=== PATIENT | male | born 1980 | race American Indian/Alaskan Native ===

== ENCOUNTER 2017-09-24 20:55 | Emergency (ER) | payer SELFPAY ==
[2017-09-24] MEDS ORDERED: BOOSTRIX IM ONE (22:24)
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
[2017-09-24 22:39] VITALS: BP 128/68
== END 2017-09-24 22:38 | disposition home or self-care (01) ==
LOC: ED 20:55
DX: S01.21XA Laceration without foreign body of nose, initial encounter (principal); W50.0XXA Accidental hit or strike by another person, initial encounter; Y93.89 Activity, other specified; Y99.8 Other external cause status; Y92.149 Unspecified place in prison as the place of occurrence of the external cause
CPT/HCPCS: 90471; 90715

== ENCOUNTER 2019-01-19 17:59 | Inpatient (IN) | payer OTHER ==
[2019-01-19] MEDS ORDERED: IPRATROPIUM 0.02% NEBU 2.5 ML IH ONE ×2 (18:06→18:08)
[2019-01-19] MEDS ORDERED: ALBUTEROL 2.5 MG/3 ML NEBU IH ONE ×2 (18:06→18:08)
[2019-01-19] MEDS ORDERED: SODIUM CHLORIDE 0.9% 1000 ML 1,000 ML IV ONE (18:08)
--- NOTE | 2019-01-19 18:32 | XRay Report ---
CHEST 1 VIEW 01/19/2019 6:07 PM INDICATION / CLINICAL INFORMATION: respiratory distress. COMPARISON: None available. FINDINGS: SUPPORT DEVICES: None. HEART / MEDIASTINUM: No significant abnormality. LUNGS / PLEURA: Bandlike opacity in the right lower lung most likely reflect subsegmental atelectasis . Left lung is clear. No significant effusion. No pneumothorax. ADDITIONAL FINDINGS: No significant additional findings. IMPRESSION: 1. Right lower lung bandlike opacity most likely reflecting subsegmental atelectasis. Signer Name: Isidro Erickson MD Signed: 01/19/2019 6:27 PM Workstation Name: [id number]
[2019-01-19 19:23] LABS: Basophils % (Auto) 0.4 % (0.0-1.8); Eosinophils # (Auto) 1.2 K/mm3 (0.0-0.4); Eosinophils % (Auto) 9.4 % (0.0-4.3); Hematocrit 44.2 % (35.5-45.6); Hemoglobin 14.2 gm/dl (11.8-15.2); Lymphocytes # (Auto) 2.5 K/mm3 (1.2-5.4); Lymphocytes % (Auto) 19.1 % (13.4-35.0); Mean Corpuscular HGB Conc 32 % (32-34); Mean Corpuscular Volume 86 fl (84-94); Monocytes # (Auto) 0.8 K/mm3 (0.0-0.8); Monocytes % (Auto) 5.9 % (0.0-7.3); Platelet Count 353 K/mm3 (140-440); Red Blood Count 5.14 M/mm3 (3.65-5.03)
[2019-01-19 19:39] LABS: BUN/Creatinine Ratio 6; Blood Urea Nitrogen 5 mg/dL (9-20); Calcium 8.7 mg/dL (8.4-10.2); Hemolysis Index 6
[2019-01-19] MEDS ORDERED: SODIUM CHLORIDE 0.9% 1000 ML IV SOLN IV ONE (19:49)
--- NOTE | 2019-01-19 20:00 | History and Physical Report ---
History of Present Illness Chief complaint: I cant breathe History of present illness: 38 YO Male with Obesity, Asthma presents to ED for evaluation. Pt states that he has experienced shortness of breath over the past 2 days with persistently worsening symptoms over the same time frame. Pt states that he has experienced nonproductive cough, and subjective fever over the same time frame. EMS notified, and upon arrival the patient was found to be in distress and transported to [facility]. Pt seen and evaluated in ED and found to have RLL Pneumonia, SIRS, Acidosis, and Acute Hypoxemic Respiratory Failure. Pt treated with supplemental oxygen and nebulizer therapy without improvement. Pt than placed on NIPPV and admitted to medical floor. Pt initiated on Pneumonia protocol. No further history obtainable. Pt is unable to speak in complete sentences, and is experiencing increased work of breathing. No prior admission for review. All listed medication reconciled at time of admission. Past History Past Medical History: other (see HPI) Past Surgical History: No surgical history, Other (reviewed) Social history: single. denies: smoking, alcohol abuse, prescription drug abuse Family history: hypertension Medications and Allergies Allergies Allergy/AdvReac Type Severity Reaction Status Date / Time No Known Allergies Allergy Unverified 09/24/17 21:07 Home Medications Medication Instructions Recorded Confirmed Last Taken Type No Known Home Medications [No 09/24/17 09/24/17 Unknown History Reported Home Medications] Active Meds: Active Medications Ceftriaxone Sodium (Rocephin/Ns 2 Gm/100 Ml) 2 gm in 100 mls @ 200 mls/hr IV Q24HR NADIR; Protocol Azithromycin 500 mg/ Sodium (Chloride) 250 mls @ 250 mls/hr IV Q24HR NADIR; Protocol Review of Systems Constitutional: fever, no weight loss, no weight gain, no chills, no sweats Ears, nose, mouth and throat: nasal congestion, no ear pain, no ear discharge, no tinnitis Cardiovascular: no chest pain, no orthopnea, no palpitations, no edema, no lightheadedness Respiratory: cough, congestion, wheezing, no hemoptysis, no dyspnea on exertion Gastrointestinal: no nausea, no vomiting, no diarrhea Genitourinary Male: no hematuria, no flank pain, no discharge, no nocturia Rectal: no pain, no incontinence, no bleeding Musculoskeletal: no neck stiffness, no neck pain, no shooting arm pain, no low back pain, no shooting leg pain Integumentary: no rash, no pruritis, no redness, no sores, no wounds Neurological: no transient paralysis, no paralysis, no weakness, no parathesias, no numbness, no seizures Psychiatric: no anxiety, no memory loss, no change in sleep habits, no insomnia, no hypersomnia, no change in libido, no suicidal ideation Endocrine: no cold intolerance, no polyphagia, no excessive thirst, no polyuria Hematologic/Lymphatic: no easy bruising, no easy bleeding, no lymphadenopathy, no lymphedema Allergic/Immunologic: no urticaria, no allergic rhinitis, no persistent infections, no angioedema Exam - Constitutional Vitals: Temp Pulse Resp BP Pulse Ox 97.5 F L 120 H 28 H 120/85 97 01/19/19 18:01 01/19/19 18:10 01/19/19 18:15 01/19/19 18:05 01/19/19 18:15 General appearance: Present: mild distress - EENT Eyes: Present: PERRL ENT: hearing intact, clear oral mucosa - Neck Neck: Present: supple, normal ROM - Respiratory Respiratory effort: labored, accessory muscle use, stridor Respiratory: bilateral: diminished, wheezing - Cardiovascular Heart Sounds: Present: S1 & S2. Absent: rub, click - Extremities Extremities: pulses symmetrical, No edema Peripheral Pulses: within normal limits - Abdominal General gastrointestinal: Present: soft, non-tender, non-distended, normal bowel sounds Male genitourinary: Present: normal - Integumentary Integumentary: Present: clear, warm, dry - Musculoskeletal Musculoskeletal: gait normal, strength equal bilaterally - Psychiatric Psychiatric: appropriate mood/affect, intact judgment & insight - Neurologic Neurologic: CNII-XII intact, moves all extremities Results - Labs CBC & Chem 7: 01/19/19 18:27 01/19/19 18:27 Labs: Abnormal lab results 01/19/19 01/19/19 Range/Units 18:27 18:27 WBC 13.0 H (4.5-11.0) K/mm3 RBC 5.14 H (3.65-5.03) M/mm3 Eos % (Auto) 9.4 H (0.0-4.3) % Eos # 1.2 H (0.0-0.4) K/mm3 Seg Neutrophils # 8.5 H (1.8-7.7) K/mm3 Potassium 3.4 L (3.6-5.0) mmol/L Carbon Dioxide 20 L (22-30) mmol/L BUN 5 L (9-20) mg/dL Glucose 179 H (75-100) mg/dL Assessment and Plan - Patient Problems (1) Acute respiratory failure Current Visit: Yes Status: Acute Qualifiers: Respiratory failure complication: hypoxia Qualified Code(s): J96.01 - Acute respiratory failure with hypoxia Plan to address problem: Supplemental oxygen,nebulizer therapy, chest x ray, pulse oximetry, D dimer, NIPPV, ABG. (2) SIRS (systemic inflammatory response syndrome) Current Visit: Yes Status: Acute Plan to address problem: IV antibiotic therapy, CBC, CMP, Chest X ray, Urinalysis (3) Acidosis Current Visit: Yes Status: Acute Plan to address problem: IVF resuscitation therapy, repeat bmp (4) Pneumonia Current Visit: Yes Status: Acute Qualifiers: Pneumonia type: due to unspecified organism Laterality: right Lung locati on: lower lobe of lung Qualified Code(s): J18.9 - Pneumonia, unspecified organism Plan to address problem: Pneumonia protocol: IV antibiotic therapy, CBC, CMP, Chest x ray, blood culture, nebulizer therapy (5) DVT prophylaxis Current Visit: Yes Status: Acute Plan to address problem: SCD to BLE while in bed, pt ambulatory
[2019-01-19] MEDS ORDERED: ONDANSETRON 4 MG/2 ML INJ IV PRN (20:01)
[2019-01-19] MEDS ORDERED: ALBUTEROL 2.5 MG/3 ML NEBU IH PRN (20:01)
[2019-01-19] MEDS ORDERED: ACETAMINOPHEN 325 MG TAB PO PRN (20:01)
[2019-01-19] MEDS: cefTRIAXone/NS 2 GM/100 ML 2 GM/100 ML BAG IV SCH (20:04)
--- NOTE | 2019-01-19 20:04 | Emergency Department Report ---
ED Asthma HPI - General Chief Complaint: Adult Asthma Stated Complaint: INGA Time Seen by Provider: 01/19/19 18:04 Source: patient, EMS Mode of arrival: Stretcher Limitations: No Limitations - History of Present Illness Initial Comments: Patient is a 38-year-old male with past medical history of asthma who is presenting with respiratory distress. Patient states that there is wheezing began several hours ago. Had a nonproductive cough. Patient states that he has had some minor congestion for the last 2 days but his breathing status worsened tonight. She didn't denies fevers chills nausea vomiting at this time. Patient states he has been intubated in the past secondary to asthma exacerbations. Severity: severe, similar to prior Context: none known Associated Symptoms: dry cough - Related Data Current Asthma Therapy: other (patient received 5 mg of albuterol, Solu-Medrol, epinephrine subcutaneously prior to arrival. Patient also received 2 g of magnesium. She was started on CPAP.) Home Medications Medication Instructions Recorded Confirmed Last Taken No Known Home Medications [No 09/24/17 09/24/17 Unknown Reported Home Medications] Allergies Allergy/AdvReac Type Severity Reaction Status Date / Time No Known Allergies Allergy Unverified 09/24/17 21:07 ED Review of Systems ROS: Stated complaint: INGA Other details as noted in HPI Comment: All other systems reviewed and negative ED Past Medical Hx - Past Medical History Previous Medical History?: Yes Hx Asthma: Yes (Hx of intubation) - Surgical History Past Surgical History?: Yes Hx Appendectomy: Yes - Social History Smoking Status: Never Smoker Substance Use Type: Alcohol - Medications Home Medications: Home Medications Medication Instructions Recorded Confirmed Last Taken Type No Known Home Medications [No 09/24/17 09/24/17 Unknown History Reported Home Medications] ED Physical Exam - General Limitations: No Limitations General appearance: alert, in no apparent distress - Head Head exam: Present: atraumatic, normocephalic - Eye Eye exam: Present: normal appearance, PERRL, EOMI - ENT ENT exam: Present: mucous membranes moist - Neck Neck exam: Present: normal inspection - Respiratory Respiratory exam: Present: respiratory distress, wheezes, accessory muscle use, decreased breath sounds, prolonged expiratory. Absent: normal lung sounds bilaterally, rales, rhonchi - Cardiovascular Cardiovascular Exam: Present: normal rhythm, tachycardia. Absent: systolic murmur, diastolic murmur, rubs, gallop - GI/Abdominal GI/Abdominal exam: Present: soft, normal bowel sounds. Absent: distended, tenderness, guarding - Rectal Rectal exam: Present: deferred - Extremities Exam Extremities exam: Present: normal inspection - Back Exam Back exam: Present: normal inspection - Neurological Exam Neurological exam: Present: alert, oriented X3 - Psychiatric Psychiatric exam: Present: normal affect, normal mood - Skin Skin exam: Present: warm, dry, intact, normal color. Absent: rash ED Course Vital Signs 01/19/19 01/19/19 01/19/19 18:01 18:05 18:10 Temperature 97.5 F L Pulse Rate 120 H 120 H Pulse Rate [ 120 H Anterior Bilateral Throughout] Respiratory 24 28 H Rate Respiratory 28 H Rate [Anterior Bilateral Throughout] Blood Pressure 120/80 120/85 Blood Pressure 120/85 [Left] O2 Sat by Pulse 96 96 Oximetry 01/19/19 18:15 Temperature Pulse Rate Pulse Rate [ Anterior Bilateral Throughout] Respiratory 28 H Rate Respiratory Rate [Anterior Bilateral Throughout] Blood Pressure Blood Pressure [Left] O2 Sat by Pulse 97 Oximetry ED Medical Decision Making - Lab Data Result diagrams: 01/19/19 18:27 01/19/19 18:27 - EKG Data -: EKG Interpreted by Ca EKG shows normal: sinus rhythm, axis, intervals, QRS complexes, ST-T waves Rate: tachycardia - Radiology Data CHEST 1 VIEW 01/19/2019 6:07 PM INDICATION / CLINICAL INFORMATION: respiratory distress. COMPARISON: None available. FINDINGS: SUPPORT DEVICES: None. HEART / MEDIASTINUM: No significant abnormality. LUNGS / PLEURA: Bandlike opacity in the right lower lung most likely reflect subsegmental atelectasis. Left lung is clear. No significant effusion. No pneumothorax. ADDITIONAL FINDINGS: No significant additional findings. IMPRESSION: 1. Right lower lung bandlike opacity most likely reflecting subsegmental a telectasis. Signer Name: Isidro Erickson MD Signed: 01/19/2019 6:27 PM Workstation Name: [id number] - Medical Decision Making She receives a negative treatment on BiPAP for an hour. Wheezing has improves slightly however patient still has decreased breath sounds. Patient does state he feels better than he did on arrival. Patient is in good spirits and does not appear to be in respiratory distress at this time. Patient be admitted to the hospitalist service. Patient had a elevated white count and because of his tachycardia and tachypnea is placed on the sepsis protocol. Patient started on antibiotics to cover for possible pneumonia. Patient does have a hazy opacity in the right lower lobe that likely his atelectasis with a pneumonia cannot be ruled out at this time. Critical Care Time: Yes (30) Critical care attestation.: If time is entered above; I have spent that time in minutes in the direct care of this critically ill patient, excluding procedure time. ED Disposition Clinical Impression: Status asthmaticus Qualifiers: Asthma severity: moderate Asthma persistence: persistent Qualified Code(s): J45.42 - Moderate persistent asthma with status asthmaticus Pneumonia Qualifiers: Pneumonia type: due to unspecified organism Laterality: right Lung location: lower lobe of lung Qualified Code(s): J18.9 - Pneumonia, unspecified organism Disposition: 09 OP ADMIT IP TO THIS HOSP Is pt being admited?: Yes Does the pt Need Aspirin: No Condition: Stable Time of Disposition: 20:05
[2019-01-19] MEDS: AZITHROMYCIN 500 MG in SODIUM CHLORIDE 0.9% 250ML 250 ML IV SCH (21:56)
[2019-01-20] MEDS ORDERED: SODIUM CHLORIDE 0.9% 1000 ML 1,000 ML IV ONE (02:50)
[2019-01-20 04:21] LABS: Hematocrit 36.4 % (35.5-45.6); Hemoglobin 11.6 gm/dl (11.8-15.2); Mean Corpuscular HGB Conc 32 % (32-34); Mean Corpuscular Volume 86 fl (84-94); Platelet Count 310 K/mm3 (140-440); Red Blood Count 4.23 M/mm3 (3.65-5.03); Red Cell Distribution Width 15.3 % (13.2-15.2)
[2019-01-20 04:46] LABS: BUN/Creatinine Ratio 7; Blood Urea Nitrogen 6 mg/dL (9-20); Calcium 8.5 mg/dL (8.4-10.2); Hemolysis Index 6
[2019-01-20 06:08] LABS: Band Neutrophils # (Manual) 0.2 K/mm3; Basophils % (Manual) 0 % (0.0-1.8); Eosinophils % (Manual) 0 % (0.0-4.3); Total Cells Counted 100
[2019-01-20 06:11] LABS: Burr Cells Rare
[2019-01-20 06:12] LABS: Platelet Estimate Consistent w Auto
[2019-01-20] MEDS: cefTRIAXone/NS 2 GM/100 ML 2 GM/100 ML BAG IV SCH (10:50)
[2019-01-20] MEDS: SODIUM CHLORIDE 0.9% 1000 ML 1,000 ML IV SCH ×2 (10:53→21:09)
--- NOTE | 2019-01-20 13:44 | Discharge Summary ---
Providers - Providers Date of Admission: 01/19/19 20:01 Date of discharge: 01/20/19 Attending physician: BEATRIS DIAZ Primary care physician: YULIET BRITT Hospitalization Condition: Stable Hospital course: 38 YO Male with Obesity, Asthma presents to ED for evaluation. Pt states that he has experienced shortness of breath over the past 2 days with persistently worsening symptoms over the same time frame. Pt states that he has experienced nonproductive cough, and subjective fever over the same time frame. EMS notified, and upon arrival the patient was found to be in distress and transported to [facility]. Pt seen and evaluated in ED and found to have RLL Pneumonia, SIRS, Acidosis, and Acute Hypoxemic Respiratory Failure. Pt treated with supplemental oxygen and nebulizer therapy without improvement. Pt than placed on NIPPV and admitted to medical floor. Pt initiated on Pneumonia protocol. No further history obtainable. Pt is unable to speak in complete sentences, and is experiencing increased work of breathing. No prior admission for review. All listed medication reconciled at time of admission. Feels better and wants to go home. Disposition: DC- TO HOME OR SELFCARE Exam - Constitutional Vitals: Temp Pulse Resp BP Pulse Ox 99.0 F 103 H 22 144/84 93 01/20/19 11:29 01/20/19 11:29 01/20/19 11:29 01/20/19 11:29 01/20/19 11:29 Plan Follow up with: YULIET BRITT MD [Primary Care Provider] - 3-5 Days
--- NOTE | 2019-01-20 13:58 | History and Physical Report ---
History of Present Illness Date of examination: 01/20/19 Date of admission: 01/19/19 20:01 Chief complaint: Pneumonia, Acute resp failure and Asthma exacerbation History of present illness: 38 YO Male with Obesity, Asthma presents to ED for evaluation. Pt states that he has experienced shortness of breath over the past 2 days with persistently worsening symptoms over the same time frame. Pt states that he has experienced nonproductive cough, and subjective fever over the same time frame. EMS notified, and upon arrival the patient was found to be in distress and transported to [facility]. Pt seen and evaluated in ED and found to have RLL Pneumonia, SIRS, Acidosis, and Acute Hypoxemic Respiratory Failure. Pt treated with supplemental oxygen and nebulizer therapy without improvement. Pt than placed on NIPPV and admitted to medical floor. Pt initiated on Pneumonia protocol. No further history obtainable. Pt is unable to speak in complete sentences, and is experiencing increased work of breathing. No prior admission for review. All listed medication reconciled at time of admission. Feeling better. Afebrile. Past History Past Medical History: other (see HPI) Past Surgical History: No surgical history, Other (reviewed) Social history: single. denies: smoking, alcohol abuse, prescription drug abuse Family history: hypertension Medications and Allergies Allergies Allergy/AdvReac Type Severity Reaction Status Date / Time No Known Allergies Allergy Unverified 09/24/17 21:07 Home Medications Medication Instructions Recorded Confirmed Last Taken Type No Known Home Medications [No 09/24/17 09/24/17 Unknown History Reported Home Medications] Active Meds: Active Medications Acetaminophen (Tylenol) 650 mg PO Q4H PRN PRN Reason: Pain MILD(1-3)/Fever >100.5/ROLDAN Albuterol (Proventil) 2.5 mg IH Q4HRT PRN PRN Reason: Shortness Of Breath Ceftriaxone Sodium (Rocephin/Ns 2 Gm/100 Ml) 2 gm in 100 mls @ 200 mls/hr IV Q 24HR NADIR; Protocol Last Admin: 01/20/19 10:50 Dose: 200 mls/hr Documented by: Azithromycin 500 mg/ Sodium (Chloride) 250 mls @ 250 mls/hr IV Q24HR NADIR; Protocol Last Admin: 01/19/19 21:56 Dose: 250 mls/hr Documented by: Sodium Chloride (Nacl 0.9% 1000 Ml) 1,000 mls @ 125 mls/hr IV DIRECT NADIR Last Admin: 01/20/19 10:53 Dose: 125 mls/hr Documented by: Ondansetron HCl (Zofran) 4 mg IV Q8H PRN PRN Reason: Nausea And Vomiting Sodium Chloride (Sodium Chloride Flush Syringe 10 Ml) 10 ml IV BID [facility] Last Admin: 01/20/19 10:51 Dose: 10 ml Documented by: Sodium Chloride (Sodium Chloride Flush Syringe 10 Ml) 10 ml IV PRN PRN PRN Reason: LINE FLUSH Exam - Constitutional Vitals: Temp Pulse Resp BP Pulse Ox 99.0 F 103 H 22 144/84 93 01/20/19 11:29 01/20/19 11:29 01/20/19 11:29 01/20/19 11:29 01/20/19 11:29 General appearance: Present: mild distress, well-nourished - EENT Eyes: Present: PERRL ENT: hearing intact, clear oral mucosa - Neck Neck: Present: supple, normal ROM - Respiratory Respiratory effort: normal Respiratory: bilateral: CTA, rales, rhonchi, wheezing - Cardiovascular Heart rate: 78 Rhythm: regular Heart Sounds: Present: S1 & S2. Absent: rub, click - Extremities Extremities: no ischemia, pulses intact, pulses symmetrical, No edema Peripheral Pulses: within normal limits - Abdominal General gastrointestinal: Present: soft, non-tender, non-distended, normal bowel sounds Male genitourinary: Present: normal - Integumentary Integumentary: Present: clear, warm, dry - Musculoskeletal Musculoskeletal: gait normal, strength equal bilaterally - Psychiatric Psychiatric: appropriate mood/affect, intact judgment & insight - Neurologic Neurologic: CNII-XII intact, moves all extremities - Allied Health Allied health notes reviewed: nursing, case management Results - Labs CBC & Chem 7: 01/20/19 03:42 01/20/19 03:42 Labs: Laboratory Last Values WBC 11.1 K/mm3 (4.5-11.0) H 01/20/19 03:42 RBC 4.23 M/mm3 (3.65-5.03) 01/20/19 03:42 Hgb 11.6 gm/dl (11.8-15.2) L 01/20/19 03:42 Hct 36.4 % (35.5-45.6) D 01/20/19 03:42 MCV 86 fl (84-94) 01/20/19 03:42 MCH 28 pg (28-32) 01/20/19 03:42 MCHC 32 % (32-34) 01/20/19 03:42 RDW 15.3 % (13.2-15.2) H 01/20/19 03:42 Plt Count 310 K/mm3 (140-440) 01/20/19 03:42 Lymph % (Auto) 19.1 % (13.4-35.0) 01/19/19 18:27 [place] % (Auto) 5.9 % (0.0-7.3) 01/19/19 18:27 Eos % (Auto) 9.4 % (0.0-4.3) H 01/19/19 18:27 Baso % (Auto) 0.4 % (0.0-1.8) 01/19/19 18:27 Lymph # 2.5 K/mm3 (1.2-5.4) 01/19/19 18:27 [place] # 0.8 K/mm3 (0.0-0.8) 01/19/19 18:27 Eos # 1.2 K/mm3 (0.0-0.4) H 01/19/19 18:27 Baso # 0.0 K/mm3 (0.0-0.1) 01/19/19 18:27 Add Manual Diff Complete 01/20/19 03:42 Total Counted 100 01/20/19 03:42 Seg Neutrophils % Yarn Winder 01/20/19 03:42 Seg Neuts % (Manual) 90.0 % (40.0-70.0) H 01/20/19 03:42 Band Neutrophils % 2.0 % 01/20/19 03:42 Lymphocytes % (Manual) 6.0 % (13.4-35.0) L 01/20/19 03:42 Reactive Lymphs % (Man) 0 % 01/20/19 03:42 Monocytes % (Manual) 2.0 % (0.0-7.3) 01/20/19 03:42 Eosinophils % (Manual) 0 % (0.0-4.3) 01/20/19 03:42 Basophils % (Manual) 0 % (0.0-1.8) 01/20/19 03:42 Metamyelocytes % 0 % 01/20/19 03:42 Myelocytes % 0 % 01/20/19 03:42 Promyelocytes % 0 % 01/20/19 03:42 Blast Cells % 0 % 01/20/19 03:42 Nucleated RBC % Not Reportable 01/20/19 03:42 Seg Neutrophils # 8.5 K/mm3 (1.8-7.7) H 01/19/19 18:27 Seg Neutrophils # Man 10.0 K/mm3 (1.8-7.7) H 01/20/19 03:42 Band Neutrophils # 0.2 K/mm3 01/20/19 03:42 Lymphocytes # (Manual) 0.7 K/mm3 (1.2-5.4) L 01/20/19 03:42 Abs React Lymphs (Man) 0.0 K/mm3 01/20/19 03:42 Monocytes # (Manual) 0.2 K/mm3 (0.0-0.8) 01/20/19 03:42 Eosinophils # (Manual) 0.0 K/mm3 (0.0-0.4) 01/20/19 03:42 Basophils # (Manual) 0.0 K/mm3 (0.0-0.1) 01/20/19 03:42 Metamyelocytes # 0.0 K/mm3 01/20/19 03:42 Myelocytes # 0.0 K/mm3 01/20/19 03:42 Promyelocytes # 0.0 K/mm3 01/20/19 03:42 Blast Cells # 0.0 K/mm3 01/20/19 03:42 WBC Morphology Not Reportable 01/20/19 03:42 Hypersegmented Neuts Not Reportable 01/20/19 03:42 Hyposegmented Neuts Not Reportable 01/20/19 03:42 Hypogranular Neuts Not Reportable 01/20/19 03:42 Smudge Cells Not Reportable 01/20/19 03:42 Toxic Granulation Not Reportable 01/20/19 03:42 Toxic Vacuolation Not Reportable 01/20/19 03:42 Dohle Bodies Not Reportable 01/20/19 03:42 Pelger-Huet Anomaly Not Reportable 01/20/19 03:42 Aime Rods Not Reportable 01/20/19 03:42 Platelet Estimate Consistent w auto 01/20/19 03:42 Clumped Platelets Not Reportable 01/20/19 03:42 Plt Clumps, EDTA Not Reportable 01/20/19 03:42 Large Platelets Not Reportable 01/20/19 03:42 Giant Platelets Not Reportable 01/20/19 03:42 Platelet Satelliting Not Reportable 01/20/19 03:42 Plt Morphology Comment Not Reportable 01/20/19 03:42 RBC Morphology Not Reportable 01/20/19 03:42 Dimorphic RBCs Not Reportable 01/20/19 03:42 Polychromasia Not Reportable 01/20/19 03:42 Hypochromasia Not Reportable 01/20/19 03:42 Poikilocytosis Not Reportable 01/20/19 03:42 Anisocytosis Not Reportable 01/20/19 03:42 Microcytosis Not Reportable 01/20/19 03:42 Macrocytosis Not Reportable 01/20/19 03:42 Spherocytes Not Reportable 01/20/19 03:42 Pappenheimer Bodies Not Reportable 01/20/19 03:42 Sickle Cells Not Reportable 01/20/19 03:42 Target Cells Not Reportable 01/20/19 03:42 Tear Drop Cells Not Reportable 01/20/19 03:42 Ovalocytes Not Reportable 01/20/19 03:42 Helmet Cells Not Reportable 01/20/19 03:42 Villegas-Oxford Bodies Not Reportable 01/20/19 03:42 [place] Rings Not Reportable 01/20/19 03:42 Willam Cells Rare 01/20/19 03:42 Bite Cells Not Reportable 01/20/19 03:42 Crenated Cell Not Reportable 01/20/19 03:42 Elliptocytes Not Reportable 01/20/19 03:42 Acanthocytes (Spur) Not Reportable 01/20/19 03:42 Rouleaux Not Reportable 01/20/19 03:42 Hemoglobin C Crystals Not Reportable 01/20/19 03:42 Schistocytes Not Reportable 01/20/19 03:42 Malaria parasites Not Reportable 01/20/19 03:42 Mainor Bodies Not Reportable 01/20/19 03:42 Hem Pathologist Commnt No 01/20/19 03:42 D-Dimer 4659.05 ng/mlDDU (0-234) H 01/19/19 23:09 Sodium 146 mmol/L (137-145) H 01/20/19 03:42 Potassium 4.1 mmol/L (3.6-5.0) D 01/20/19 03:42 Chloride 112.5 mmol/L (98-107) H 01/20/19 03:42 Carbon Dioxide 15 mmol/L (22-30) L 01/20/19 03:42 Anion Gap 23 mmol/L 01/20/19 03:42 BUN 6 mg/dL (9-20) L 01/20/19 03:42 Creatinine 0.9 mg/dL (0.8-1.5) 01/20/19 03:42 Estimated GFR > 60 ml/min 01/20/19 03:42 BUN/Creatinine Ratio 7 % 01/20/19 03:42 Glucose 232 mg/dL (75-100) H 01/20/19 03:42 Lactic Acid 1.60 mmol/L (0.7-2.0) 01/20/19 09:47 Calcium 8.5 mg/dL (8.4-10.2) 01/20/19 03:42 Short CBC 01/19/19 01/20/19 Range/Units 18:27 03:42 WBC 13.0 H 11.1 H (4.5-11.0) K/mm3 Hgb 14.2 11.6 L (11.8-15.2) gm/dl Hct 44.2 36.4 D (35.5-45.6) % Plt Count 353 310 (140-440) K/mm3 [facility] 01/19/19 01/20/19 18:27 03:42 Sodium 140 146 H Potassium 3.4 L 4.1 D Chloride 102.0 112.5 H Carbon Dioxide 20 L 15 L BUN 5 L 6 L Creatinine 0.9 0.9 Glucose 179 H 232 H Calcium 8.7 8.5 - Imaging and Cardiology Chest x-ray: report reviewed Imaging and Cardiology: CXR IMPRESSION: 1. Right lower lung bandlike opacity most likely reflecting subsegmental atelectasis. Assessment and Plan Advance Directives: Yes (Full code) VTE prophylaxis?: Chemical Plan of care discussed with patient/family: Yes
--- NOTE | 2019-01-20 14:07 | Progress Note ---
Assessment and Plan (1) Pneumonia Current Visit: Yes Status: Acute Qualifiers: Pneumonia type: due to unspecified organism Laterality: right Lung location: lower lobe of lung Qualified Code(s): J18.9 - Pneumonia, unspecified organism Plan to address problem: Pneumonia protocol:Cont IV antibiotic therapy and nebulizer treatments (2) Acute respiratory failure Current Visit: Yes Status: Acute Qualifiers: Respiratory failure complication: hypoxia Qualified Code(s): J96.01 - Acute respiratory failure with hypoxia Plan to address problem: Supplemental oxygen,nebulizer therapy, chest x ray, pulse oximetry, D dimer, NIPPV, ABG. (3) SIRS (systemic inflammatory response syndrome) Current Visit: Yes Status: Acute Plan to address problem: IV antibiotic therapy, CBC, CMP, Chest X ray, Urinalysis (4) Acidosis Current Visit: Yes Status: Acute Plan to address problem: IVF resuscitation therapy, repeat bmp (5) DVT prophylaxis Current Visit: Yes Status: Acute Plan to address problem: SCD to BLE while in bed, pt ambulatory Subjective Date of service: 01/20/19 Principal diagnosis: RLL Pna ,Resp failure and Asthma exacerbation Interval history: 38 YO Male with Obesity, Asthma presents to ED for evaluation. Pt states that he has experienced shortness of breath over the past 2 days with persistently worsening symptoms over the same time frame. Pt states that he has experienced nonproductive cough, and subjective fever over the same time frame. EMS notified, and upon arrival the patient was found to be in distress and transported to [facility]. Pt seen and evaluated in ED and found to have RLL Pneumonia, SIRS, Acidosis, and Acute Hypoxemic Respiratory Failure. Pt treated with supplemental oxygen and nebulizer therapy without improvement. Pt than placed on NIPPV and admitted to medical floor. Pt initiated on Pneumonia protocol. No further history obtainable. Pt is unable to speak in complete sentences, and is experiencing increased work of breathing. No prior admission for review. All listed medication reconciled at time of admission. Feeling better. Afebrile. Objective - Constitutional Vitals: Vital Signs - 12hr 01/20/19 01/20/19 01/20/19 06:10 10:00 10:56 Temperature 98.6 F Pulse Rate 92 H Pulse Rate [ 85 Anterior Bilateral Throughout] Respiratory 18 Rate Respiratory 20 Rate [Anterior Bilateral Throughout] Blood Pressure 107/70 O2 Sat by Pulse 94 100 Oximetry 01/20/19 11:29 Temperature 99.0 F Pulse Rate 103 H Pulse Rate [ Anterior Bilateral Throughout] Respiratory 22 Rate Respiratory Rate [Anterior Bilateral Throughout] Blood Pressure 144/84 O2 Sat by Pulse 93 Oximetry General appearance: Present: mild distress, well-nourished - EENT Eyes: PERRL, EOM intact ENT: hearing intact, clear oral mucosa Ears: bilateral: normal - Neck Neck: supple, normal ROM - Respiratory Respiratory effort: normal Respiratory: bilateral: CTA, rhonchi, wheezing - Breasts Breasts: normal - Cardiovascular Heart rate: 78 Rhythm: regular Heart Sounds: Present: S1 & S2. Absent: gallop, rub Extremities: pulses intact, No edema, normal color, Full ROM - Gastrointestinal General gastrointestinal: Present: soft, non-tender, non-distended, normal bowel sounds - Genitourinary Male genitourinary: normal - Integumentary Integumentary: clear, warm, dry - Musculoskeletal Musculoskeletal: 1, strength equal bilaterally - Neurologic Neurologic: moves all extremities - Psychiatric Psychiatric: memory intact, appropriate mood/affect, intact judgment & insight - Labs CBC & Chem 7: 01/20/19 03:42 01/20/19 03:42 Labs: Abnormal lab results 01/19/19 01/19/19 01/19/19 Range/Units 18:27 18:27 19:59 WBC 13.0 H (4.5-11.0) K/mm3 RBC 5.14 H (3.65-5.03) M/mm3 Hgb (11.8-15.2) gm/dl RDW (13.2-15.2) % Eos % (Auto) 9.4 H (0.0-4.3) % Eos # 1.2 H (0.0-0.4) K/mm3 Seg Neuts % (Manual) (40.0-70.0) % Lymphocytes % (Manual) (13.4-35.0) % Seg Neutrophils # 8.5 H (1.8-7.7) K/mm3 Seg Neutrophils # Man (1.8-7.7) K/mm3 Lymphocytes # (Manual) (1.2-5.4) K/mm3 D-Dimer (0-234) ng/mlDDU Sodium (137-145) mmol/L Potassium 3.4 L (3.6-5.0) mmol/L Chloride (98-107) mmol/L Carbon Dioxide 20 L (22-30) mmol/L BUN 5 L (9-20) mg/dL Glucose 179 H (75-100) mg/dL Lactic Acid 3.20 H* (0.7-2.0) mmol/L 01/19/19 01/19/19 01/19/19 Range/Units 21:41 23:09 23:09 WBC (4.5-11.0) K/mm3 RBC (3.65-5.03) M/mm3 Hgb (11.8-15.2) gm/dl RDW (13.2-15.2) % Eos % (Auto) (0.0-4.3) % Eos # (0.0-0.4) K/mm3 Seg Neuts % (Manual) (40.0-70.0) % Lymphocytes % (Manual) (13.4-35.0) % Seg Neutrophils # (1.8-7.7) K/mm3 Seg Neutrophils # Man (1.8-7.7) K/mm3 Lymphocytes # (Manual) (1.2-5.4) K/mm3 D-Dimer 4659.05 H (0-234) ng/mlDDU Sodium (137-145) mmol/L Potassium (3.6-5.0) mmol/L Chloride (98-107) mmol/L Carbon Dioxide (22-30) mmol/L BUN (9-20) mg/dL Glucose (75-100) mg/dL Lactic Acid 4.40 H* 4.30 H* (0.7-2.0) mmol/L 01/20/19 01/20/19 01/20/19 Range/Units 00:42 03:42 03:42 WBC 11.1 H (4.5-11.0) K/mm3 RBC (3.65-5.03) M/mm3 Hgb 11.6 L (11.8-15.2) gm/dl RDW 15.3 H (13.2-15.2) % Eos % (Auto) (0.0-4.3) % Eos # (0.0-0.4) K/mm3 Seg Neuts % (Manual) 90.0 H (40.0-70.0) % Lymphocytes % (Manual) 6.0 L (13.4-35.0) % Seg Neutrophils # (1.8-7.7) K/mm3 Seg Neutrophils # Man 10.0 H (1.8-7.7) K/mm3 Lymphocytes # (Manual) 0.7 L (1.2-5.4) K/mm3 D-Dimer (0-234) ng/mlDDU Sodium 146 H (137-145) mmol/L Potassium (3.6-5.0) mmol/L Chloride 112.5 H (98-107) mmol/L Carbon Dioxide 15 L (22-30) mmol/L BUN 6 L (9-20) mg/dL Glucose 232 H (75-100) mg/dL Lactic Acid 4.30 H* (0.7-2.0) mmol/L 01/20/19 Range/Units 03:42 WBC (4.5-11.0) K/mm3 RBC (3.65-5.03) M/mm3 Hgb (11.8-15.2) gm/dl RDW (13.2-15.2) % Eos % (Auto) (0.0-4.3) % Eos # (0.0-0.4) K/mm3 Seg Neuts % (Manual) (40.0-70.0) % Lymphocytes % (Manual) (13.4-35.0) % Seg Neutrophils # (1.8-7.7) K/mm3 Seg Neutrophils # Man (1.8-7.7) K/mm3 Lymphocytes # (Manual) (1.2-5.4) K/mm3 D-Dimer (0-234) ng/mlDDU Sodium (137-145) mmol/L Potassium (3.6-5.0) mmol/L Chloride (98-107) mmol/L Carbon Dioxide (22-30) mmol/L BUN (9-20) mg/dL Glucose (75-100) mg/dL Lactic Acid 4.00 H* (0.7-2.0) mmol/L IMPRESSION: 1. Right lower lung bandlike opacity most likely reflecting subsegmental atelectasis. - Imaging and cardiology Chest x-ray: report reviewed
[2019-01-20] MEDS: AZITHROMYCIN 500 MG in SODIUM CHLORIDE 0.9% 250ML 250 ML IV SCH (14:17)
[2019-01-20] MEDS: IPRATROPIUM/ALBUTEROL SULFATE 3 ML AMPUL.NEB IH ONE ×2 (20:57→21:02)
[2019-01-20 23:49] VITALS: BP 141/83
== END 2019-01-21 01:00 | disposition left against medical advice (07) | DRG 193 ==
LOC: ED 17:59 → 3A 20:01
PROVIDERS: ADMIT Internal Medicine; ATTEND Internal Medicine
PROC: 5A09357 Assistance with Respiratory Ventilation, Less than 24 Consecutive Hours, Continuous Positive Airway Pressure (ICD-10-PCS; principal; 2019-01-19)
DX: J18.9 Pneumonia, unspecified organism (principal); J96.01 Acute respiratory failure with hypoxia; J45.42 Moderate persistent asthma with status asthmaticus; E87.2 Acidosis; R65.10 Systemic inflammatory response syndrome (SIRS) of non-infectious origin without acute organ dysfunction; Z53.29 Procedure and treatment not carried out because of patient's decision for other reasons; E66.9 Obesity, unspecified; Z90.49 Acquired absence of other specified parts of digestive tract; Z68.33 Body mass index [BMI] 33.0-33.9, adult; Z82.49 Family history of ischemic heart disease and other diseases of the circulatory system
CPT/HCPCS: 36415; 71045; 80048; 82140; 85007; 85025; 85379; 87040; 93005; 93010; 94640; 94644; 94760; 96360; 96361; G0378; J0456; J0696; J7030; J7050

== ENCOUNTER 2020-04-10 11:03 | Observation (INO) | payer OTHER ==
[2020-04-10] MEDS ORDERED: IPRATROPIUM 0.02% NEBU 2.5 ML IH ONE (11:13)
[2020-04-10] MEDS ORDERED: SODIUM CHLORIDE 0.9% 1000 ML 1,000 ML IV ONE (11:13)
[2020-04-10] MEDS ORDERED: ALBUTEROL 2.5 MG/3 ML NEBU IH ONE (11:13)
--- NOTE | 2020-04-10 11:21 | Emergency Department Report ---
ED Shortness of Breath HPI - General Chief Complaint: Dyspnea/Respdistress Stated Complaint: ASTHMA Time Seen by Provider: 04/10/20 11:12 Source: patient, EMS Mode of arrival: Stretcher Limitations: No Limitations - History of Present Illness Initial Comments: Chief complaint: Shortness of breath HPI: This is 39-year-old male with history of asthma, pneumonia who presents with severe shortness of breath. Symptoms began this morning. Patient denies fever cough chest pain. He denies exposure to sick contacts. Upon EMS arrival oxygen saturation 68% on room air. Patient was in severe respiratory distress. He was treated in route with CPAP, epinephrine subcu, IV magnesium, IV Solu- Medrol. Patient did not have auscultated breath sounds or significant air movement according to rn imaging verbal bedside report. Patient denies any pain. He denies history of mechanical ventilation. Patient denies history of intubation. however it is documented that patient had previously been intubated in the electronic medical record. According to the electronic medical record, patient was admitted for status asthmaticus and pneumonia [id number]. Patient required noninvasive positive pressure ventilation at that time. MD Complaint: shortness of breath -: Gradual, This morning Severity: severe Consistency: constant Improves With: bronchodilators, upright position, other (CPAP) Known History Of: asthma Context: other (No access to medication) Associated Symptoms: denies other symptoms - Related Data Home Medications Medication Instructions Recorded Confirmed Last Taken No Known Home Medications [No 09/24/17 09/24/17 Unknown Reported Home Medications] Allergies Allergy/AdvReac Type Severity Reaction Status Date / Time No Known Allergies Allergy Unverified 09/24/17 21:07 ED Review of Systems ROS: Stated complaint: ASTHMA Other details as noted in HPI Comment: All other systems reviewed and negative Constitutional: denies: fever, malaise Respiratory: shortness of breath. denies: cough Cardiovascular: denies: chest pain Gastrointestinal: denies: abdominal pain, nausea, vomiting ED Past Medical Hx - Past Medical History Previous Medical History?: Yes Hx Congestive Heart Failure: No Hx Diabetes: No Hx Asthma: Yes (Hx of intubation) Hx COPD: No Hx HIV: No - Surgical History Past Surgical History?: Yes Hx Appendectomy: Yes - Social History Smoking Status: Never Smoker Substance Use Type: None - Medications Home Medications: Home Medications Medication Instructions Recorded Confirmed Last Taken Type No Known Home Medications [No 09/24/17 09/24/17 Unknown History Reported Home Medications] ED Physical Exam - General Limitations: No Limitations General appearance: alert, anxious, in distress, other (Severe respiratory distress, accessory muscle use, rapid breathing 40 breaths/min, CPAP in place) - Head Head exam: Present: atraumatic, normocephalic - Eye Eye exam: Present: normal appearance - ENT ENT exam: Present: mucous membranes moist - Neck Neck exam: Present: normal inspection, full ROM - Respiratory Respiratory exam: Present: respiratory distress, accessory muscle use, decreased breath sounds, prolonged expiratory. Absent: rales, rhonchi - Cardiovascular Cardiovascular Exam: Present: normal rhythm, tachycardia, normal heart sounds. Absent: systolic murmur, diastolic murmur, rubs, gallop - GI/Abdominal GI/Abdominal exam: Present: soft, normal bowel sounds. Absent: distended, tenderness, guarding, rebound - Rectal Rectal exam: Present: deferred - Extremities Exam Extremities exam: Present: normal inspection - Neurological Exam Neurological exam: Present: alert, oriented X3 - Psychiatric Psychiatric exam: Present: normal affect, anxious - Skin Skin exam: Present: warm, other (Diffuse patchy papular rash extremities torso, annular pattern with central clearing most prominent in lower extremities). Absent: rash ED Course Vital Signs 04/10/20 04/10/20 04/10/20 11:13 11:14 11:20 Pulse Rate 126 H 120 H Pulse Rate [ 112 H Anterior Bilateral Throughout] Respiratory 31 H 28 H Rate Respiratory 22 Rate [Anterior Bilateral Throughout] Blood Pressure 172/109 O2 Sat by Pulse 93 98 Oximetry - Reevaluation(s) Reevaluation #1: 04/10/20 11:26 Nursing team members noticed generalized rash. Patient does not have any itching throat swelling. He does not know when this rash occurred. He papular patchy rash in his extremities torso. Rash on lower extremity had annular leno kwadwo with central clearing. At this time I do not suspect anaphylaxis urticaria hypersensitive reaction. I do suspect tinea corporis Reevaluation #2: 04/10/20 11:26 Patient has inspiratory wheezing improved air movement on BiPAP. Respiratory therapist decreased FiO2 to 45%. Respiratory therapist is administering albuterol Atrovent continuous nebulizer therapy Reevaluation #3: 04/10/20 12:02 Patient has improved air movement. Speaking full sentences. Rapid breathing still noted. Oxygen saturation 94% with FiO2 45%. Reevaluation #4: 04/10/20 13:41 Nurse team physician informed me that patient had worsening rash. I examined the patient. The rash became more diffuse and prominent. After famotidine and Benadryl, rash resolved. Girlfriend informed nurse that rash recurs. Reevaluation #5: 04/10/20 14:36 Patient is comfortable. He is speaking full word sentences. He is tolerating BiPAP. Respiratory rate 18 breaths/min ED Medical Decision Making - Lab Data Result diagrams: 04/10/20 11:32 04/10/20 11:32 - EKG Data -: EKG Interpreted by Me EKG shows normal: sinus rhythm, axis, intervals, QRS complexes, ST-T waves Rate: tachycardia - EKG Data 04/10/20 11:35 Twelve-lead EKG obtained per EMS interpreted by me Obtained 1054 prior to patient's arrival Sinus tachycardia rate 125 bpm normal axis normal intervals no ST elevation nonischemic T wave pattern poor R wave progression in the anterior leads - Radiology Data Radiology results: report reviewed CHEST 1 VIEW INDICATION: Asthma. COMPARISON: 01/19/19 FINDINGS: SUPPORT DEVICES: None. HEART: Within normal limits. LUNGS/PLEURA: Mild bilateral central peribronchial thickening could be seen in the setting of asthma; however, there is no consolidation, edema, significant air trapping, or effusion. ADDITIONAL FINDINGS: None. IMPRESSION: 1. Pulmonary findings as above. - Medical Decision Making 1. Status asthmaticus, acute respiratory failure hypoxia: Patient required noninvasive positive pressure ventilation for entire ED observation. ABG reveals mild respiratory acidosis appropriate oxygenation. 2. 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 Patient receives allergy shots . Symptoms resolved with famotidine and diphenhydramine. Critical Care Time: Yes Critical care time in (mins) excluding proc time.: 60 Critical care attestation.: If time is entered above; I have spent that time in minutes in the direct care of this critically ill patient, excluding procedure time. 60 minutes of critical care time excluding procedures were used in the care of the patient. I came immediately to the bedside upon patient's arrival. I obtained history from EMS at the bedside. I discussed treatment plan with the nursing team members. I reviewed electronic record. I discussed treatment plan with respiratory therapist. I made adjustments to BiPAP settings. I was unable to attend to other patients. Patient was in severe respiratory distress. I was concerned for imminent airway compromise. I was concerned for profound hypoxia. Patient required multiple interventions and reassessments. ED Disposition Clinical Impression: Acute respiratory failure with hypoxia, Allergic dermatitis Status asthmaticus Qualifiers: Asthma severity: moderate Asthma persistence: persistent Qualified Code(s): J45.42 - Moderate persistent asthma with status asthmaticus Disposition: 09 OP ADMIT IP TO THIS HOSP Is pt being admited?: Yes Does the pt Need Aspirin: No Condition: Stable
[2020-04-10 11:50] LABS: Basophils # (Auto) 0.1 K/mm3 (0.0-0.1); Basophils % (Auto) 0.5 % (0.0-1.8); Eosinophils # (Auto) 1.2 K/mm3 (0.0-0.4); Hematocrit 37.9 % (35.5-45.6); Lymphocytes # (Auto) 1.8 K/mm3 (1.2-5.4); Lymphocytes % (Auto) 12.3 % (13.4-35.0); Mean Corpuscular HGB Conc 32 % (32-34); Mean Corpuscular Volume 85 fl (84-94); Monocytes # (Auto) 0.6 K/mm3 (0.0-0.8); Monocytes % (Auto) 4.3 % (0.0-7.3); Platelet Count 366 K/mm3 (140-440); Red Blood Count 4.44 M/mm3 (3.65-5.03); Red Cell Distribution Width 16.2 % (13.2-15.2)
[2020-04-10 12:06] LABS: BUN/Creatinine Ratio 12; Blood Urea Nitrogen 12 mg/dL (9-20); Calcium 8.5 mg/dL (8.4-10.2); Hemolysis Index 3
[2020-04-10] MEDS ORDERED: diphenhydrAMINE 50 MG/ML VIAL IV ONE (12:48)
[2020-04-10] MEDS ORDERED: FAMOTIDINE 20 MG/2 ML INJ IV ONE (12:49)
--- NOTE | 2020-04-10 12:52 | XRay Report ---
CHEST 1 VIEW INDICATION: Asthma. COMPARISON: 01/19/19 FINDINGS: SUPPORT DEVICES: None. HEART: Within normal limits. LUNGS/PLEURA: Mild bilateral central peribronchial thickening could be seen in the setting of asthma; however, there is no consolidation, edema, significant air trapping, or effusion. ADDITIONAL FINDINGS: None. IMPRESSION: 1. Pulmonary findings as above. Signer Name: Hany Clayton MD Signed: 04/10/2020 12:47 PM Workstation Name: [id number]
[2020-04-10 13:49] LABS: ABG Base Excess -2.6 mmol/L (-2.0-3.0); ABG HCO3 23.2 mmol/L (20.0-26.0); ABG Methemoglobin 0.5 % (0.0-1.5); ABG PH 7.34 pH Units (7.350-7.450); ABG PO2 93.5 mm Hg (80.0-90.0)
[2020-04-10] MEDS ORDERED: ACETAMINOPHEN 325 MG TAB PO PRN (14:28)
[2020-04-10] MEDS ORDERED: ONDANSETRON 4 MG/2 ML INJ IV PRN (14:28)
--- NOTE | 2020-04-10 14:28 | History and Physical Report ---
History of Present Illness Chief complaint: I cant breathe History of present illness: 39 YO Male with Asthma, Obesity Hypoventilation Syndrome presents to ED for evaluation. Pt reports "I cant......breathe". Patient is in severe distress at this time my evaluation and is unable to provide detailed history due to amos rtness of breath. Patient history taken from EMS staff as well as ED staff. As per staff the patient was found to have difficulty breathing over the past 1 day with persistently worsening symptoms over the same timeframe. EMS was notified and on upon arrival the patient was found to be in severe respiratory distress and was placed on submental oxygen and transported to [facility] for further care and evaluation of the aforementioned symptoms. The patient was seen and evaluated in the emergency department. All lab and imaging studies reviewed. Patient was found to have a pulse oximetry of 68% on room air which is consistent with acute hypoxemic respiratory failure secondary to status asthmaticus. Patient treated with bronchodilator therapy, IV steroid therapy, as well as noninvasive positive pressure ventilation with improvement in symptoms. Patient found to be using accessory muscles to breathe, tripoding, sitting forward in bed, and unable to speak in complete sentences. Chest x-ray also revealed evidence of pneumonia. Patient also found to have systemic inflammatory response syndrome, and accelerated hypertension. Patient admitted to medical floor and initiated on pneumonia protocol. No further history obtainable. No prior admission for review. No medication listed at time of admission for reconciliation. Past History Past Medical History: other (See HPI) Past Surgical History: appendectomy Social history: single. denies: smoking, alcohol abuse, prescription drug abuse Family history: diabetes, hypertension Medications and Allergies Allergies Allergy/AdvReac Type Severity Reaction Status Date / Time No Known Allergies Allergy Unverified 09/24/17 21:07 Home Medications Medication Instructions Recorded Confirmed Last Taken Type No Known Home Medications [No 09/24/17 09/24/17 Unknown History Reported Home Medications] Review of Systems ROS unobtainable: due to endotracheal tube (Review of systems unobtainable due to respiratory status and presence of noninvasive positive pressure ventilation.) Exam - Constitutional Vitals: Temp Pulse Resp BP Pulse Ox 112 H 22 172/109 98 04/10/20 11:20 04/10/20 11:20 04/10/20 11:13 04/10/20 11:14 General appearance: Present: mild distress - EENT Eyes: Present: PERRL ENT: hearing intact, clear oral mucosa - Neck Neck: Present: supple, normal ROM - Respiratory Respiratory effort: labored, pursed lips, accessory muscle use, stridor Respiratory: bilateral: diminished, wheezing - Cardiovascular Rhythm: other (Tachycardia) Heart Sounds: Present: S1 & S2. Absent: rub, click - Extremities Extremities: pulses symmetrical, No edema Peripheral Pulses: within normal limits - Abdominal General gastrointestinal: Present: soft, non-tender, non-distended, normal bowel sounds Male genitourinary: Present: normal - Integumentary Integumentary: Present: clear, warm, dry - Musculoskeletal Musculoskeletal: gait normal, strength equal bilaterally - Psychiatric Psychiatric: appropriate mood/affect, intact judgment & insight, agitated - Neurologic Neurologic: CNII-XII intact, moves all extremities Results - Labs CBC & Chem 7: 04/10/20 11:32 04/10/20 11:32 Labs: Abnormal lab results 04/10/20 04/10/20 04/10/20 Range/Units 11:32 11:32 12:02 WBC 14.7 H (4.5-11.0) K/mm3 MCH 27 L (28-32) pg RDW 16.2 H (13.2-15.2) % Lymph % (Auto) 12.3 L (13.4-35.0) % Eos % (Auto) 8.0 H (0.0-4.3) % Eos # (Auto) 1.2 H (0.0-0.4) K/mm3 Seg Neutrophils % 74.9 H (40.0-70.0) % Seg Neutrophils # 11.0 H (1.8-7.7) K/mm3 ABG pH 7.340 L (7.350-7.450) pH Units ABG pO2 93.5 H (80.0-90.0) mm Hg ABG Base Excess -2.6 L (-2.0-3.0) mmol/L ABG Hemoglobin 12.4 L (14.0-18.0) gm/dl Glucose 150 H (75-100) mg/dL Assessment and Plan - Patient Problems (1) Acute respiratory failure with hypoxia Current Visit: Yes Status: Acute Plan to address problem: Chest x-ray, supplemental oxygen, pulse oximetry, nebulizer therapy, noninvasive positive pressure ventilation as clinically indicated. (2) Status asthmaticus Current Visit: Yes Status: Acute Qualifiers: Asthma severity: moderate Asthma persistence: persistent Qualified Code(s): J45.42 - Moderate persistent asthma with status asthmaticus Plan to address problem: IV steroid therapy, nebulizer therapy, pulse oximetry, magnesium, (3) Pneumonia Current Visit: No Status: Acute Qualifiers: Pneumonia type: due to unspecified organism Laterality: right Lung location: lower lobe of lung Qualified Code(s): J18.9 - Pneumonia, unspecified organism Plan to address problem: Pneumonia protocol: Chest x-ray, CBC, CMP, supplemental oxygen, nebulizer therapy, blood culture. (4) SIRS (systemic inflammatory response syndrome) Current Visit: No Status: Acute Plan to address problem: CBC, CMP, IV antibiotic therapy, repeat CBC in a.m. (5) DVT prophylaxis Current Visit: No Status: Acute Plan to address problem: SCD to bilateral lower extremities while in bed, patient is ambulatory.
[2020-04-10] MEDS ORDERED: MAGNESIUM SULFATE 1 GM in SODIUM CHLORIDE 0.9% 50 ML IV NR (15:46)
[2020-04-10] MEDS: AZITHROMYCIN/NS 500 MG/250 ML 500 MG/250 ML BAG IV SCH (15:54)
[2020-04-10] MEDS: cefTRIAXone/NS 2 GM/100 ML 2 GM/100 ML BAG IV SCH (17:04)
[2020-04-10] MEDS: methylPREDNISolone Sod Succinate 40 MG/1 ML INJ IV SCH (21:44)
[2020-04-11] MEDS: methylPREDNISolone Sod Succinate 40 MG/1 ML INJ IV SCH ×2 (05:17→13:18)
[2020-04-11 06:17] LABS: Basophils # (Auto) 0.1 K/mm3 (0.0-0.1); Basophils % (Auto) 0.5 % (0.0-1.8); Eosinophils % (Auto) 0.1 % (0.0-4.3); Hematocrit 35.4 % (35.5-45.6); Hemoglobin 11.5 gm/dl (11.8-15.2); Lymphocytes % (Auto) 8.6 % (13.4-35.0); Mean Corpuscular HGB Conc 32 % (32-34); Mean Corpuscular Volume 86 fl (84-94); Monocytes # (Auto) 0.3 K/mm3 (0.0-0.8); Monocytes % (Auto) 2.4 % (0.0-7.3); Platelet Count 307 K/mm3 (140-440); Red Blood Count 4.12 M/mm3 (3.65-5.03); Red Cell Distribution Width 16.5 % (13.2-15.2)
[2020-04-11 06:45] LABS: BUN/Creatinine Ratio 15; Blood Urea Nitrogen 12 mg/dL (9-20); Calcium 8.9 mg/dL (8.4-10.2); Hemolysis Index 12
[2020-04-11] MEDS ORDERED: IPRATROPIUM/ALBUTEROL SULFATE 3 ML AMPUL.NEB IH ONE (12:38)
[2020-04-11] MEDS: IPRATROPIUM/ALBUTEROL SULFATE 3 ML AMPUL.NEB IH SCH ×2 (12:49→13:46)
--- NOTE | 2020-04-11 14:13 | Discharge Summary ---
Providers - Providers Date of Admission: 04/10/20 14:28 Date of discharge: 04/11/20 Attending physician: MARIANNE LEGGETT Primary care physician: AGING BOX HAND Hospitalization Condition: Stable Hospital course: This is a 39 y/o AAM with h/o asthma presented to Er by EMS with severe SOB. Patient was found to have a pulse oximetry of 68% on room air which is consistent with acute hypoxemic respiratory failure secondary to status asthmaticus. Patient treated with bronchodilator therapy, IV steroid therapy, as well as noninvasive positive pressure ventilation with improvement in symptoms. Chest x-ray revealed no evidence of pneumonia. Patient also found to have systemic inflammatory response syndrome, and accelerated hypertension. Patient was admitted to medical floor with scheduled nebs, iv abx, iv steroids and supplemental O2 to keep O2 sat at 94%. Patients symptom improved with medical management. He was saturating >94% at RA w/o any difficulty breathing. Patient was then discharged home in stable condition with outpt f/u. CXR: Mild bilateral central peribronchial thickening could be seen in the setting of asthma; however, there is no consolidation, edema, significant air trapping, or effusion. Discharge diagnosis; Acute hypoxic respiratory failure, resolved Status asthmaticus PNA, due to unspecified organism, suspected - treated with abx SIRS, due to asthma Disposition: DC-01 TO HOME OR SELFCARE Time spent for discharge: 34 minutes Core Measure Documentation - Palliative Care Palliative Care/ Comfort Measures: Not Applicable - Core Measures Any of the following diagnoses?: none Exam - Constitutional Vitals: Temp Pulse Resp BP Pulse Ox 97.3 F L 101 H 18 131/71 96 04/11/20 08:37 04/11/20 08:37 04/11/20 04:05 04/11/20 08:37 04/11/20 12:20 General appearance: Present: no acute distress, well-nourished - EENT Eyes: Present: PERRL ENT: hearing intact, clear oral mucosa - Neck Neck: Present: supple, normal ROM - Respiratory Respiratory effort: normal Respiratory: bilateral: CTA - Cardiovascular Heart Sounds: Present: S1 & S2. Absent: rub, click - Extremities Extremities: pulses symmetrical, No edema Peripheral Pulses: within normal limits - Abdominal General gastrointestinal: Present: soft, non-tender, non-distended, normal bowel sounds - Integumentary Integumentary: Present: clear, warm, dry - Musculoskeletal Musculoskeletal: gait normal, strength equal bilaterally - Psychiatric Psychiatric: appropriate mood/affect, intact judgment & insight - Neurologic Neurologic: CNII-XII intact, moves all extremities Plan Activity: advance as tolerated Weight Bearing Status: Weight Bear as Tolerated Diet: low fat, low salt Follow up with: PRIMARY CARE, [Primary Care Provider] - 7 Days BEATRIS DIAZ MD [Staff Physician] - 7 Days Prescriptions: Fluticasone/Salmeterol [Advair Diskus 250-50 mcg] 1 puff IH BID 30 Days predniSONE [Deltasone] 5 mg PO .TAPER #21 tab Ipratropium/Albuterol Sulfate [DUONEB *Not for PRN Use*] 1 ampul IH Q8HR #30 Albuterol Sulfate [Proair Digihaler] 90 mcg IH 4XD 30 Days Benzonatate [Tessalon Perles] 100 mg PO Q8HR #14 cap Azithromycin [Zithromax] 250 mg PO DAILY #4 tablet Other Discharge Orders: Nebulizer (Amb) Location: None Selected
[2020-04-11] MEDS: AZITHROMYCIN/NS 500 MG/250 ML 500 MG/250 ML BAG IV SCH (14:18)
[2020-04-11] MEDS: cefTRIAXone/NS 2 GM/100 ML 2 GM/100 ML BAG IV SCH (15:01)
[2020-04-11 15:13] VITALS: BP 126/84
== END 2020-04-11 16:21 | disposition home or self-care (01) ==
LOC: ED 11:03 → 4A 14:28 → INTOOBSV 14:28 → 4A 19:26
PROVIDERS: ADMIT Internal Medicine; ATTEND Internal Medicine
DX: J96.01 Acute respiratory failure with hypoxia (principal); R65.10 Systemic inflammatory response syndrome (SIRS) of non-infectious origin without acute organ dysfunction; J45.902 Unspecified asthma with status asthmaticus; J18.9 Pneumonia, unspecified organism; E66.2 Morbid (severe) obesity with alveolar hypoventilation; L23.9 Allergic contact dermatitis, unspecified cause; Z68.34 Body mass index [BMI] 34.0-34.9, adult; Z90.49 Acquired absence of other specified parts of digestive tract; Z98.890 Other specified postprocedural states
CPT/HCPCS: 36415; 71045; 80048; 82803; 85025; 87040; 94640; 94644; 94760; 96361; 96365; 96366; 96367; 96375; 96376; 99291; G0378; J0456; J0696; J1200; J2920; J3475; J7030; 96368

== ENCOUNTER 2020-05-13 03:54 | Emergency (ER) | payer OTHER ==
[2020-05-13] MEDS ORDERED: EPINEPHrine/PF 1 MG/1 ML INJ SUB-Q ONE (04:05)
[2020-05-13] MEDS ORDERED: IPRATROPIUM 0.02% NEBU 2.5 ML IH ONE (04:05)
[2020-05-13] MEDS ORDERED: ALBUTEROL 2.5 MG/3 ML NEBU IH ONE (04:05)
--- NOTE | 2020-05-13 04:07 | Emergency Department Report ---
ED General Adult HPI - General Chief complaint: Adult Asthma Stated complaint: im wheezing PUI?: No Time Seen by Provider: 05/13/20 04:04 Source: patient, EMS (Verbal report received from emergency medical services. EMS documentation not available at time of chart dictation ), RN notes reviewed, old records reviewed Mode of arrival: Stretcher Limitations: Physical Limitation - History of Present Illness Initial comments: The patient was evaluated in the emergency department for symptoms described in the history of present illness. He/she was evaluated in the context of the global COVID-19 pandemic, which necessitated consideration that the patient might be at risk for infection with the virus that causes COVID-19. Ins titutional protocols and algorithms that pertain to the evaluation of patients at risk for COVID-19 are in a state of rapid change based on information released by regulatory bodies including the CDC and federal and state organizations. These policies and algorithms were followed during the patient's care in the emergency department. Please note that these policies, procedures and recommendations changed on a rapid basis. Pulmonology: Dr. Puckett The patient is a pleasant 39-year-old gentleman who is not known to myself previously, with a history of asthma, reactive airways disease, obesity, recently admitted to this hospital for asthma exacerbation. He is brought to the hospital today by emergency medical services with a complaint of painless wheezing and shortness of breath. Patient states he has taken almost 30 mg of albuterol in total, between what he gave himself at home, and with what EMS gave him in the field. EMS also gave steroids, and magnesium in the field. Initially upon arrival, patient tachypneic, wheezing, with belly breathing, and was given subcutaneous epinephrine. This dramatically improved his symptoms. The patient denies loss of taste and smell, headache, neck pain, chest pain, abdominal pain, vomiting, diaphoresis, muscular pain. He states he feels "a whole lot better." -: Gradual, hour(s) Severity scale (0 -10): 0 Consistency: constant Improves with: medication, rest Worsens with: movement - Related Data Home Medications Medication Instructions Recorded Confirmed Last Taken Azelastine/Fluticasone 23 gm NS TID 04/10/20 04/10/20 Unknown [Azelastin-Flutic 137-50Mcg Spr] Omeprazole 20 mg PO QDAY 04/10/20 04/10/20 Unknown Previous Rx's Medication Instructions Recorded Last Taken Type Azithromycin [Zithromax] 250 mg PO DAILY #4 tablet 04/11/20 Unknown Rx Albuterol Sulfate [Proair 90 mcg IH 4XD 30 Days 05/13/20 Unknown Rx Digihaler] Albuterol Sulfate [Proair 90 mcg IH Q4HR PRN #2 aer.pow.ba 05/13/20 Unknown Rx Respiclick] Benzonatate [Tessalon Perles] 100 mg PO Q8HR #14 cap 05/13/20 Unknown Rx EPINEPHrine [Epipen 2-Srinivasan] 0.3 mg IM DAILY PRN #2 ml 05/13/20 Unknown Rx Fluticasone/Salmeterol [Advair 1 puff IH BID 30 Days 05/13/20 Unknown Rx Diskus 250-50 mcg] Ipratropium/Albuterol Sulfate 1 ampul IH Q8HR #30 05/13/20 Unknown Rx [DUONEB *Not for PRN Use*] predniSONE [Deltasone] 5 mg PO .TAPER #21 tab 05/13/20 Unknown Rx Allergies Allergy/AdvReac Type Severity Reaction Status Date / Time No Known Allergies Allergy Unverified 09/24/17 21:07 ED Review of Systems ROS: Stated complaint: INGA Other details as noted in HPI Constitutional: malaise. denies: fever Eyes: denies: eye discharge ENT: congestion Respiratory: shortness of breath, SOB with exertion, SOB at rest, wheezing Cardiovascular: denies: chest pain, syncope Gastrointestinal: denies: abdominal pain Genitourinary: denies: dysuria Musculoskeletal: denies: myalgia Neurological: weakness Psychiatric: anxiety Hematological/Lymphatic: denies: easy bleeding ED Past Medical Hx - Past Medical History Hx Hypertension: Yes Hx Congestive Heart Failure: No Hx Diabetes: No Hx Asthma: Yes (Hx of intubation) Hx COPD: No Hx HIV: No - Surgical History Hx Appendectomy: Yes - Social History Smoking Status: Never Smoker - Medications Home Medications: Home Medications Medication Instructions Recorded Confirmed Last Taken Type Azelastine/Fluticasone 23 gm NS TID 04/10/20 04/10/20 Unknown History [Azelastin-Flutic 137-50Mcg Spr] Omeprazole 20 mg PO QDAY 04/10/20 04/10/20 Unknown History Azithromycin [Zithromax] 250 mg PO DAILY #4 tablet 04/11/20 Unknown Rx Albuterol Sulfate [Proair 90 mcg IH 4XD 30 Days 05/13/20 Unknown Rx Digihaler] Albuterol Sulfate [Proair 90 mcg IH Q4HR PRN #2 aer.pow.ba 05/13/20 Unknown Rx Respiclick] Benzonatate [Tessalon Perles] 100 mg PO Q8HR #14 cap 05/13/20 Unknown Rx EPINEPHrine [Epipen 2-Srinivasan] 0.3 mg IM DAILY PRN #2 ml 05/13/20 Unknown Rx Fluticasone/Salmeterol [Advair 1 puff IH BID 30 Days 05/13/20 Unknown Rx Diskus 250-50 mcg] Ipratropium/Albuterol Sulfate 1 ampul IH Q8HR #30 05/13/20 Unknown Rx [DUONEB *Not for PRN Use*] predniSONE [Deltasone] 5 mg PO .TAPER #21 tab 05/13/20 Unknown Rx ED Physical Exam - General Limitations: Physical Limitation General appearance: alert, anxious, in distress, obese - Head Head exam: Present: atraumatic, normocephalic - Eye Eye exam: Present: normal appearance, EOMI. Absent: nystagmus - ENT ENT exam: Present: normal exam, normal orophraynx, mucous membranes moist, normal external ear exam - Neck Neck exam: Present: normal inspection, full ROM. Absent: tenderness, meningismus - Respiratory Respiratory exam: Present: respiratory distress, wheezes, rhonchi, accessory muscle use - Cardiovascular Cardiovascular Exam: Present: normal rhythm, tachycardia, normal heart sounds. Absent: bradycardia, irregular rhythm, systolic murmur, diastolic murmur, rubs, gallop - GI/Abdominal GI/Abdominal exam: Present: soft. Absent: distended, tenderness, guarding, rebound, rigid, pulsatile mass - Rectal Rectal exam: Present: deferred - Extremities Exam Extremities exam: Present: normal inspection, full ROM, other (2+ pulses noted in the bilateral upper and lower extremities. There is no palpable cord. negative Homans sign. Muscular compartments are soft. The pelvis is stable.). Absent: pedal edema, calf tenderness - Back Exam Back exam: Present: normal inspection, full ROM. Absent: tenderness, CVA tenderness (R), CVA tenderness (L), paraspinal tenderness, vertebral tenderness - Neurological Exam Neurological exam: Present: alert, other (No facial droop. Tongue midline. Extraocular movements intact bilaterally. Facial sensation intact to light touch in V1, V2, V3 distribution bilaterally. 5 and a 5 strength in 4 extremities. Sensation intact to light touch in 4 extremities.). Absent: motor sensory deficit - Psychiatric Psychiatric exam: Present: anxious - Skin Skin exam: Present: warm, dry, intact, normal color. Absent: rash ED Course Vital Signs 05/13/20 05/13/20 05/13/20 04:03 04:10 04:58 Temperature 98.1 F Pulse Rate 100 H 100 H Pulse Rate [ 114 H Bilateral] Respiratory 13 20 Rate Respiratory 14 Rate [Bilateral ] Blood Pressure 132/87 132/87 [Left] O2 Sat by Pulse 100 98 Oximetry - Reevaluation(s) Reevaluation #1: 05/13/20 04:43 Differential diagnosis, including but not limited to: Asthma exacerbation, pneumonia, pneumothorax, status asthmaticus Assessment and plan: 39-year-old gentleman, with clinical asthma exacerbation, who denies travel, surgery, leg pain, leg swelling, oral contraceptive use, immobilization, who denies DVT and pulmonary embolism risk factors, who is low risk by Wells criteria, with tachycardia, likely secondary to albuterol administration, but markedly improved work of breathing, resolving wheezing, resolving accessory muscle use. Check labs, EKG, x-ray of the chest, continue albuterol Atrovent therapy, reassess. Patient amenable to this plan of care. 05/13/20 05:10 Reassessed. Feels improved. No active wheezing. Saturating well, on 2 L. X- ray the chest reviewed and appreciated. EKG unchanged from prior. Patient states he feels like he is ready to go. 05/13/20 05:23 Patient feeling much improved. Patient ambulated around the emergency room, O2 sat slightly dropped to 93%. We would expect some degree of VQ mismatch, given his current reactive airways disease. However, he has no active wheezing, he has no labored breathing, and he is currently playing on his cellular phone, and he reports significant improvement in his symptoms. Based off of his clinical improvement, do not see indication for admission at this time. 05/13/20 05:53 Final reassessment. Patient playing on his cellular phone. No active wheezing. He endorses readiness for discharge. He states he is aware of his pulmonary n odule. 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 Return precautions are reviewed. He states he feels comfortable and ready to go home. Mild hypomagnesemia likely secondary to recent magnesium administration. ED Medical Decision Making - Lab Data Result diagrams: 05/13/20 04:16 05/13/20 04:16 Vital Signs 05/13/20 05/13/20 04:03 04:10 Pulse Rate 100 H Pulse Rate [ 102 H Bilateral] Respiratory 13 Rate Respiratory 12 Rate [Bilateral ] Blood Pressure 132/87 [Left] O2 Sat by Pulse 100 Oximetry Vital Signs 05/13/20 05/13/20 05/13/20 04:03 04:10 04:58 Temperature 98.1 F Pulse Rate 100 H 100 H Pulse Rate [ 114 H Bilateral] Respiratory 13 20 Rate Respiratory 14 Rate [Bilateral ] Blood Pressure 132/87 132/87 [Left] O2 Sat by Pulse 100 98 Oximetry Lab Results 05/13/20 05/13/20 05/13/20 Range/Units 04:16 04:16 04:16 WBC 7.7 (4.5-11.0) K/mm3 RBC 4.55 (3.65-5.03) M/mm3 Hgb 12.8 (11.8-15.2) gm/dl Hct 39.1 (35.5-45.6) % MCV 86 (84-94) fl MCH 28 (28-32) pg MCHC 33 (32-34) % RDW 16.1 H (13.2-15.2) % Plt Count 319 (140-440) K/mm3 Eos % (Auto) Policy Value Calculator PT 12.7 (12.2-14.9) Sec. INR 0.97 (0.87-1.13) APTT 25.4 (24.2-36.6) Sec. Sodium 141 (137-145) mmol/L Potassium 3.8 (3.6-5.0) mmol/L Chloride 105.8 (98-107) mmol/L Carbon Dioxide 26 (22-30) mmol/L Anion Gap 13 mmol/L BUN 12 (9-20) mg/dL Creatinine 0.9 (0.8-1.3) mg/dL Estimated GFR > 60 ml/min BUN/Creatinine Ratio 13 % Glucose 99 (75-100) mg/dL Lactic Acid (0.7-2.0) mmol/L Calcium 8.5 (8.4-10.2) mg/dL Magnesium 3.00 H (1.7-2.3) mg/dL Total Bilirubin 0.30 (0.1-1.2) mg/dL AST 17 (5-40) units/L ALT 17 (7-56) units/L Alkaline Phosphatase 79 (35-129) units/L Total Creatine Kinase (55-170) units/L Total Protein 6.8 (6.3-8.2) g/dL Albumin 4.1 (3.9-5) g/dL Albumin/Globulin Ratio 1.5 % 05/13/20 05/13/20 Range/Units 04:16 04:16 WBC (4.5-11.0) K/mm3 RBC (3.65-5.03) M/mm3 Hgb (11.8-15.2) gm/dl Hct (35.5-45.6) % MCV (84-94) fl MCH (28-32) pg MCHC (32-34) % RDW (13.2-15.2) % Plt Count (140-440) K/mm3 Eos % (Auto) PT (12.2-14.9) Sec. INR (0.87-1.13) APTT (24.2-36.6) Sec. Sodium (137-145) mmol/L Potassium (3.6-5.0) mmol/L Chloride (98-107) mmol/L Carbon Dioxide (22-30) mmol/L Anion Gap mmol/L BUN (9-20) mg/dL Creatinine (0.8-1.3) mg/dL Estimated GFR ml/min BUN/Creatinine Ratio % Glucose (75-100) mg/dL Lactic Acid 1.40 (0.7-2.0) mmol/L Calcium (8.4-10.2) mg/dL Magnesium (1.7-2.3) mg/dL Total Bilirubin (0.1-1.2) mg/dL AST (5-40) units/L ALT (7-56) units/L Alkaline Phosphatase (35-129) units/L Total Creatine Kinase 107 (55-170) units/L Total Protein (6.3-8.2) g/dL Albumin (3.9-5) g/dL Albumin/Globulin Ratio % - EKG Data -: EKG Interpreted by Me EKG shows normal: sinus rhythm Rate: tachycardia - EKG Data When compared to previous EKG there are: no significant change Interpretation: unchanged when compared t 05/13/20 04:40 Time of interpretation, 4: 30 a.m. Sinus rhythm, tachycardia, 104 bpm. Normal axis, normal intervals, poor R wave progression. Motion artifact. Not a STEMI. Unchanged from prior EKG from December 2018. - Radiology Data Radiology results: pending, report reviewed, image reviewed CHEST 1 VIEW 05/13/2020 3:42 AM INDICATION / CLINICAL INFORMATION: Dyspnea. COMPARISON: 04/10/2020 FINDINGS: SUPPORT DEVICES: None. HEART / MEDIASTINUM: No significant abnormality. LUNGS / PLEURA: 2.3 cm pulmonary nodule again overlies the right lower lung field No pneumothorax. ADDITIONAL FINDINGS: No significant additional findings. IMPRESSION: 1. 2.3 cm round pulmonary nodule right lower lobe. Recommend follow-up chest CT with contrast in order to distinguish pneumonia from neoplasm Signer Name: Poncho Blevins MD Signed: 05/13/2020 4:01 AM Workstation Name: [id number] CHEST 1 VIEW INDICATION: Asthma. COMPARISON: 01/19/19 FINDINGS: SUPPORT DEVICES: None. HEART: Within normal limits. LUNGS/PLEURA: Mild bilateral central peribronchial thickening could be seen in the setting of asthma; howeve r, there is no consolidation, edema, significant air trapping, or effusion. ADDITIONAL FINDINGS: None. IMPRESSION: 1. Pulmonary findings as above. Signer Name: Hany Clayton MD Signed: 04/10/2020 11:47 AM Workstation Name: [id number] CHEST 1 VIEW 01/19/2019 6:07 PM INDICATION / CLINICAL INFORMATION: respiratory distress. COMPARISON: None available. FINDINGS: SUPPORT DEVICES: None. HEART / MEDIASTINUM: No significant abnormality. LUNGS / PLEURA: Bandlike opacity in the right lower lung most likely reflect subsegmental atelectasis. Left lung is clear. No significant effusion. No pneumothorax. ADDITIONAL FINDINGS: No significant additional findings. IMPRESSION: 1. Right lower lung bandlike opacity most likely reflecting subsegmental atelectasis. Signer Name: Isidro Erickson MD Signed: 01/19/2019 5:27 PM Workstation Name: [id number] Critical Care Time: Yes Critical care time in (mins) excluding proc time.: 35 Critical care attestation.: If time is entered above; I have spent that time in minutes in the direct care of this critically ill patient, excluding procedure time. ED Disposition Clinical Impression: Pulmonary nodule Reactive airway disease Qualifiers: Asthma severity: unspecified severity Asthma persistence: unspecified Asthma complication type: with acute exacerbation Qualified Code(s): J45.901 - Unspecified asthma with (acute) exacerbation Disposition: DC- TO HOME OR SELFCARE Is pt being admited?: No Does the pt Need Aspirin: No Condition: Good Instructions: Asthma, Adult, Pulmonary Nodule, [id number] Additional Instructions: Please take the medications as needed and directed. 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 X-ray the chest demonstrated pulmonary nodule. This should be followed up by her outpatient primary care doctor or assembly machine set up mechanic to exclude cancer, tumor, malignancy. Please avoid consumption of tobacco and smoke products. Please return to the emergency room right away with new pain, worsened pain, migration of pain, projectile vomiting, change in mental status, confusion, inability to tolerate liquid feeds, new, worsened or different symptoms not present on the initial emergency room evaluation. Prescriptions: Fluticasone/Salmeterol [Advair Diskus 250-50 mcg] 1 puff IH BID 30 Days predniSONE [Deltasone] 5 mg PO .TAPER #21 tab Ipratropium/Albuterol Sulfate [DUONEB *Not for PRN Use*] 1 ampul IH Q8HR #30 EPINEPHrine [Epipen 2-Srinivasan] 0.3 mg IM DAILY PRN #2 ml PRN Reason: Allergic Reaction Albuterol Sulfate [Proair Digihaler] 90 mcg IH 4XD 30 Days Albuterol Sulfate [Proair Respiclick] 90 mcg IH Q4HR PRN #2 aer.pow.ba PRN Reason: Wheezing Benzonatate [Tessalon Perles] 100 mg PO Q8HR #14 cap Referrals: RANDY PUCKETT MD [Staff Physician] - 05/13/20 Forms: Work/School Release Form(ED)
[2020-05-13] MEDS ORDERED: LACTATED RINGERS 500 ML IV ONE ×2 (04:44→05:45)
[2020-05-13 05:04] LABS: Hematocrit 39.1 % (35.5-45.6); Hemoglobin 12.8 gm/dl (11.8-15.2); Mean Corpuscular HGB Conc 33 % (32-34); Mean Corpuscular Volume 86 fl (84-94); Platelet Count 319 K/mm3 (140-440); Red Blood Count 4.55 M/mm3 (3.65-5.03); Red Cell Distribution Width 16.1 % (13.2-15.2)
--- NOTE | 2020-05-13 05:05 | XRay Report ---
CHEST 1 VIEW 05/13/2020 3:42 AM INDICATION / CLINICAL INFORMATION: Dyspnea. COMPARISON: 04/10/2020 FINDINGS: SUPPORT DEVICES: None. HEART / MEDIASTINUM: No significant abnormality. LUNGS / PLEURA: 2.3 cm pulmonary nodule again overlies the right lower lung field No pneumothorax. ADDITIONAL FINDINGS: No significant additional findings. IMPRESSION: 1. 2.3 cm round pulmonary nodule right lower lobe. Recommend follow-up chest CT with contrast in orde r to distinguish pneumonia from neoplasm Signer Name: Poncho Blevins MD Signed: 05/13/2020 5:01 AM Workstation Name: [id number]
[2020-05-13 05:16] LABS: INR 0.97 (0.87-1.13)
[2020-05-13 05:17] LABS: Partial Thromboplastin Time 25.4 Sec. (24.2-36.6)
[2020-05-13 05:38] LABS: Alanine Aminotransferase 17 units/L (7-56); Albumin 4.1 g/dL (3.9-5); BUN/Creatinine Ratio 13; Blood Urea Nitrogen 12 mg/dL (9-20); Calcium 8.5 mg/dL (8.4-10.2); Hemolysis Index 5
[2020-05-13 06:17] LABS: Total Cells Counted 100
[2020-05-13 06:20] LABS: Anisocytosis 1+; Platelet Estimate Consistent w Auto
[2020-05-13 06:42] VITALS: BP 124/72
--- NOTE | 2020-05-15 11:00 | Electrocardiograph Report ---
[facility] Test Date: 2020-05-13 Test Time: 04:29:37 Pat Name: WICHO CARTY JR Department: Room: Gender: M Line Crewman: RAMÍREZ : 1980 Requested By: BON WALLACE Order Number: [id number] Reading MD: Neeraj Quezada Measurements Intervals Mobile Rate: 104 P: 27 UT: 155 QRS: 41 QRSD: 79 T: 0 QT: 331 QTc: 436 Interpretive Statements Sinus tachycardia Anterior infarct, old No previous ECG available for comparison Electronically Signed On 05-15-2020 8:00:06 PDT by Neeraj Quezada
== END 2020-05-13 06:40 | disposition home or self-care (01) ==
LOC: ED 03:54
DX: J45.909 Unspecified asthma, uncomplicated (principal); R91.1 Solitary pulmonary nodule; I10 Essential (primary) hypertension; Z79.899 Other long term (current) drug therapy; Z90.49 Acquired absence of other specified parts of digestive tract
CPT/HCPCS: 36415; 71045; 80053; 82140; 82550; 83735; 84484; 85007; 85025; 85610; 85730; 93005; 94640; 96372; 99284; J0171; J7120; 94644